=== PATIENT | male | born 1950 | race Caucasian/White ===

== ENCOUNTER 2018-05-10 11:25 | Inpatient (IN) | payer MEDICARE, BC ==
[~2018-05-10] VITALS: Ht 182.9 cm; Wt 72.7 kg
[~2018-05-10 11:25] MED LIST: ANORO IH; DOXYCYCLINE 10100 MG PO; PULMICORT180 MCG/Ac IH; SINGULAIR 110 MG/TAB PO; TYLENOL 500MG500 MG PO; ZANTAC 150MG T150 MG PO; ZYRTEC 10MG10 MG PO
[2018-05-10] MEDS ORDERED: FOSAMAX 35MG35 MG PO (11:48)
[2018-05-10] MEDS ORDERED: OSCAL 500 TAB500 MG PO (11:48)
[2018-05-10] MEDS ORDERED: VITAMIN D31000 IU PO (11:49)
[2018-05-10] MEDS ORDERED: PREDNISONE10 MG PO (11:50)
[2018-05-10] MEDS ORDERED: NEURONTIN300 MG/CAP PO (11:51)
[2018-05-10 12:48] LABS: HEMATOCRIT 44.6 % (42.0-52.0); HEMOGLOBIN 15.1 g/dl (13.5-18.0); MEAN CELL VOLUME 92 fl (80.0-100.0); MEAN CORPUSCULAR HEMOGLOBIN 31 pg (27.0-31.0); MEAN CORPUSCULAR HGB CONC 34 g/dl (33.0-37.0); MEAN PLATELET VOLUME 9.6 fl (7.4-10.4); PLATELET COUNT 432 K/mm3 (130-400); RED BLOOD COUNT 4.86 M/mm3 (4.20-5.60); REDCELL DISTRIBUTION WIDTH-CV 12.4 % (11.5-14.5)
[2018-05-10 13:03] LABS: ALBUMIN 3.8 gm/dL (3.5-5.0); BILIRUBIN,TOTAL 0.8 mg/dL (0.0-1.0); C-REACTIVE PROTEIN 5.2 mg/dL (0.0-0.9); CALCIUM 8.5 mg/dL (8.4-10.2); CREATININE, serum 0.67 mg/dL (0.66-1.25); TOTAL PROTEIN 7.4 gm/dL (6.4-8.2)
[2018-05-10 13:12] LABS: BAND 1 % (0-10); LYMPHOCYTE 12 % (20.0-51.0); METAMYELOCYTE 5 % (0-0); NEUTROPHILS 77 % (42.0-75.2)
[2018-05-10 13:13] LABS: ERYTHROCYTE SEDIMENTATION RATE 48 mm/hr (0-30)
[2018-05-10 13:15] LABS: ANISOCYTOSIS 1+; HYPOCHROMIA 1+; PLATELET ESTIMATE NORMAL (NORMAL)
[2018-05-10] MEDS ORDERED: NORCO 325 MG-51 TAB PO (15:34)
[2018-05-10] MEDS ORDERED: CLEOCIN HCL300 MG PO (15:34)
[2018-05-10 21:48] VITALS: BP 150/78; BP 170/78; PULSE 86; TEMP 97.9
[2018-05-11 00:22] VITALS: BP 113/65; PULSE 64; TEMP 98.5
[2018-05-11 03:54] VITALS: BP 121/50; PULSE 70; TEMP 98.6
[2018-05-11 07:28] VITALS: BP 121/60; PULSE 66; TEMP 97.6
[2018-05-11] MEDS ORDERED: NORCO 325 MG-51 TAB PO (10:24)
[2018-05-11] MEDS ORDERED: CLEOCIN HCL300 MG PO (10:26)
[2018-05-11] MEDS ORDERED: PREDNISONE10 MG PO (10:27)
[2018-05-11] MEDS ORDERED: PERIDEX (CHLOR480 ML MM (10:28)
== END 2018-05-11 11:50 | disposition home or self-care (01) | DRG 159 ==
LOC: COL.ER 11:25 → SURG 17:57
PROVIDERS: Emergency Medicine
PROC: 0C96XZZ Drainage of Lower Gingiva, External Approach (ICD-10-PCS; principal; 2018-05-10)
DX: K04.7 Periapical abscess without sinus (principal); J44.9 Chronic obstructive pulmonary disease, unspecified; M81.0 Age-related osteoporosis without current pathological fracture; J30.9 Allergic rhinitis, unspecified; K21.9 Gastro-esophageal reflux disease without esophagitis
CPT/HCPCS: OP; J1100; J2270; J3010; J7030; J7120; Q9967

== ENCOUNTER 2018-08-16 13:52 | Outpatient (CLI) | payer MEDICARE, BC ==
[~2018-08-16] VITALS: Ht 182.9 cm; Wt 74.5 kg
[~2018-08-16 13:52] MED LIST changes: +CLEOCIN HCL300 MG PO; +FOSAMAX 35MG35 MG PO; +NEURONTIN300 MG/CAP PO; +NORCO 325 MG-51 TAB PO; +OSCAL 500 TAB500 MG PO; +PERIDEX (CHLOR480 ML MM; +PREDNISONE10 MG PO; +VITAMIN D31000 IU PO
[2018-08-16] MEDS ORDERED: MULTI VITAMINS1 TAB PO (14:28)
[2018-08-16 14:29] VITALS: BP 145/59; PULSE 59; TEMP 97.8
== END 2018-08-16 15:20 | disposition home or self-care (01) ==
LOC: EUO 13:52
DX: J45.50 Severe persistent asthma, uncomplicated (principal); D72.1 Eosinophilia; Z79.899 Other long term (current) drug therapy
CPT/HCPCS: C9466

== ENCOUNTER 2018-09-13 10:50 | Outpatient (CLI) | payer MEDICARE, BC ==
[~2018-09-13 10:50] MED LIST changes: +MULTI VITAMINS1 TAB PO
[2018-09-13 11:02] VITALS: BP 163/68; PULSE 62; TEMP 97.5
== END 2018-09-13 12:26 | disposition home or self-care (01) ==
LOC: EUO 10:50 → EDSTATUS 14:00 → EUO 14:00
DX: J45.50 Severe persistent asthma, uncomplicated (principal); D72.1 Eosinophilia; Z79.899 Other long term (current) drug therapy
CPT/HCPCS: C9466

== ENCOUNTER 2018-10-12 13:26 | Outpatient (CLI) | payer MEDICARE, BC ==
[~2018-10-12] VITALS: Ht 182.9 cm; Wt 73.0 kg
[2018-10-12 14:04] VITALS: BP 148/68; PULSE 62; TEMP 97.9
--- NOTE | 2018-10-12 14:25 | NUR ---
Pt charles tijerina. Pt left unit per ambulation.
== END 2018-10-12 15:05 | disposition home or self-care (01) ==
LOC: EUO 13:26 → EDSTATUS 13:30 → EUO 13:30
DX: J45.50 Severe persistent asthma, uncomplicated (principal); D72.1 Eosinophilia; Z79.899 Other long term (current) drug therapy
CPT/HCPCS: J0517

== ENCOUNTER 2018-12-07 10:54 | Outpatient (RCR) | payer MEDICARE, BC ==
[~2018-12-07] VITALS: Ht 182.9 cm; Wt 73.0 kg
[2018-12-07 11:06] VITALS: BP 129/66; PULSE 70; TEMP 97.1
--- NOTE | 2018-12-07 11:22 | NUR ---
Pt charles tijerina. Pt discharged per ambulation.
== END 2018-12-07 11:22 | disposition home or self-care (01) ==
LOC: EUO 10:54
DX: J45.50 Severe persistent asthma, uncomplicated (principal); D72.1 Eosinophilia; Z79.899 Other long term (current) drug therapy
CPT/HCPCS: J0517

== ENCOUNTER 2019-02-03 13:02 | Outpatient (CLI) | payer MEDICARE, BC ==
[~2019-02-03] VITALS: Ht 182.9 cm; Wt 73.3 kg
[2019-02-03 13:22] VITALS: BP 147/74; PULSE 66; TEMP 98.4
== END 2019-02-03 13:32 | disposition home or self-care (01) ==
LOC: EUO 13:02
DX: J45.50 Severe persistent asthma, uncomplicated (principal); D72.1 Eosinophilia; Z79.899 Other long term (current) drug therapy
CPT/HCPCS: J0517

== ENCOUNTER 2019-03-31 13:13 | Outpatient (RCR) | payer MEDICARE, BC ==
[2019-03-31] MEDS ORDERED: FASENRA30 MG/1 ML SQ (13:47)
[2019-03-31 13:49] VITALS: BP 143/65; PULSE 51; TEMP 97.8
== END 2019-03-31 14:00 | disposition home or self-care (01) ==
LOC: EUO 13:13
DX: J45.50 Severe persistent asthma, uncomplicated (principal); D72.1 Eosinophilia; Z79.899 Other long term (current) drug therapy
CPT/HCPCS: J0517

== ENCOUNTER 2019-05-26 12:59 | Outpatient (CLI) | payer MEDICARE, BC ==
[~2019-05-26] VITALS: Ht 182.9 cm; Wt 73.2 kg
[~2019-05-26 12:59] MED LIST changes: +FASENRA30 MG/1 ML SQ
[2019-05-26 13:16] VITALS: BP 150/66; PULSE 56; TEMP 97.3
== END 2019-05-26 13:46 | disposition home or self-care (01) ==
LOC: EUO 12:59
DX: J45.50 Severe persistent asthma, uncomplicated (principal); D72.1 Eosinophilia; Z79.899 Other long term (current) drug therapy
CPT/HCPCS: J0517

== ENCOUNTER 2019-07-21 12:47 | Outpatient (RCR) | payer MEDICARE, BC ==
[~2019-07-21] VITALS: Ht 182.9 cm; Wt 75.9 kg
[2019-07-21 12:58] VITALS: BP 138/70; PULSE 62; TEMP 97.3
== END 2019-07-21 13:09 | disposition home or self-care (01) ==
LOC: EUO 12:47
DX: J45.50 Severe persistent asthma, uncomplicated (principal); D72.1 Eosinophilia; Z79.899 Other long term (current) drug therapy
CPT/HCPCS: J0517

== ENCOUNTER 2019-09-15 12:56 | Outpatient (CLI) | payer MEDICARE, BC ==
[~2019-09-15] VITALS: Ht 182.9 cm; Wt 99.3 kg
[2019-09-15 13:51] VITALS: BP 171/79; PULSE 66; TEMP 97.6
== END 2019-09-15 13:52 | disposition home or self-care (01) ==
LOC: EUO 12:56
DX: J82 Pulmonary eosinophilia, not elsewhere classified (principal); Z79.899 Other long term (current) drug therapy
CPT/HCPCS: J0517

== ENCOUNTER 2019-11-10 12:36 | Outpatient (CLI) | payer MEDICARE, BC ==
[~2019-11-10] VITALS: Ht 182.9 cm; Wt 74.7 kg
[~2019-11-10 12:36] MED LIST changes: +VITAMIN D 400400 IU PO; -VITAMIN D31000 IU PO
[2019-11-10 12:54] VITALS: BP 162/74; PULSE 67; TEMP 97.4
== END 2019-11-10 13:07 | disposition home or self-care (01) ==
LOC: EUO 12:36
DX: J82 Pulmonary eosinophilia, not elsewhere classified (principal); Z79.899 Other long term (current) drug therapy
CPT/HCPCS: J0517

== ENCOUNTER 2020-03-01 13:04 | Outpatient (CLI) | payer MEDICARE, BC ==
[~2020-03-01] VITALS: Ht 182.9 cm; Wt 74.0 kg
[2020-03-01 13:34] VITALS: BP 121/79; PULSE 63; TEMP 97.7
== END 2020-03-01 13:48 | disposition home or self-care (01) ==
LOC: EUO 13:04
DX: J82 Pulmonary eosinophilia, not elsewhere classified (principal); Z79.899 Other long term (current) drug therapy
CPT/HCPCS: J0517

== ENCOUNTER 2020-06-21 13:05 | Outpatient (CLI) | payer MEDICARE, BC ==
[~2020-06-21] VITALS: Ht 182.9 cm; Wt 75.3 kg
[2020-06-21 13:30] VITALS: BP 148/91; PULSE 88; TEMP 98.6
== END 2020-06-21 14:22 | disposition home or self-care (01) ==
LOC: EUO 13:05
DX: J45.909 Unspecified asthma, uncomplicated (principal); D72.1 Eosinophilia; Z79.899 Other long term (current) drug therapy
CPT/HCPCS: J0517

== ENCOUNTER 2020-08-16 13:01 | Outpatient (CLI) | payer MEDICARE, BC ==
[~2020-08-16] VITALS: Ht 182.9 cm; Wt 74.4 kg
[2020-08-16 13:26] VITALS: BP 153/78; PULSE 58; TEMP 98.2
== END 2020-08-16 13:31 | disposition home or self-care (01) ==
LOC: EUO 13:01
DX: J82.83 Eosinophilic asthma (principal); Z79.899 Other long term (current) drug therapy
CPT/HCPCS: J0517

== ENCOUNTER 2020-10-14 12:54 | Outpatient (CLI) | payer MEDICARE, BC ==
[~2020-10-14] VITALS: Ht 182.9 cm; Wt 75.3 kg
[2020-10-14 13:09] VITALS: BP 143/79; PULSE 57; TEMP 98.4
== END 2020-10-14 15:10 | disposition home or self-care (01) ==
LOC: EUO 12:54
DX: J82.83 Eosinophilic asthma (principal); Z79.899 Other long term (current) drug therapy
CPT/HCPCS: J0517

== ENCOUNTER → 2020-12-09 | Outpatient (CLI) | payer MEDICARE, BC ==
[~2020-12-09] VITALS: Ht 182.9 cm; Wt 76.7 kg
[2020-12-09 13:42] VITALS: BP 151/76; PULSE 62; TEMP 97.5
== END ==
LOC: EUO 12:54
DX: J82.83 Eosinophilic asthma (principal); Z79.899 Other long term (current) drug therapy
CPT/HCPCS: J0517

== ENCOUNTER 2021-02-03 12:47 | Outpatient (CLI) | payer MEDICARE, BC ==
[~2021-02-03] VITALS: Ht 182.9 cm; Wt 75.7 kg
[2021-02-03 13:10] VITALS: BP 126/77; PULSE 99; TEMP 99
== END 2021-02-03 13:46 | disposition home or self-care (01) ==
LOC: EUO 12:47
DX: J82.83 Eosinophilic asthma (principal); Z79.899 Other long term (current) drug therapy
CPT/HCPCS: J0517

== ENCOUNTER 2021-03-31 12:52 | Outpatient (CLI) | payer MEDICARE, BC ==
[~2021-03-31] VITALS: Ht 182.9 cm; Wt 75.5 kg
[2021-03-31 13:28] VITALS: BP 155/85; PULSE 96; TEMP 98.3
== END 2021-03-31 13:37 | disposition home or self-care (01) ==
LOC: EUO 12:52
DX: J45.909 Unspecified asthma, uncomplicated (principal); D72.10 Eosinophilia, unspecified
CPT/HCPCS: J0517

== ENCOUNTER 2021-05-27 12:45 | Outpatient (CLI) | payer MEDICARE, BC ==
[~2021-05-27] VITALS: Ht 182.9 cm; Wt 73.9 kg
[2021-05-27 13:07] VITALS: BP 139/53; PULSE 61; TEMP 97.6
== END 2021-05-27 13:08 | disposition home or self-care (01) ==
LOC: EUO 12:45
DX: J82.83 Eosinophilic asthma (principal); Z79.899 Other long term (current) drug therapy
CPT/HCPCS: J0517

== ENCOUNTER 2021-07-22 13:04 | Outpatient (CLI) | payer MEDICARE, BC ==
[~2021-07-22] VITALS: Ht 182.9 cm; Wt 73.8 kg
[2021-07-22 13:21] VITALS: BP 142/74; PULSE 53; TEMP 98.2
== END 2021-07-22 13:29 | disposition home or self-care (01) ==
LOC: EUO 13:04
DX: J82.83 Eosinophilic asthma (principal); Z79.899 Other long term (current) drug therapy
CPT/HCPCS: J0517

== ENCOUNTER 2021-09-16 13:00 | Outpatient (CLI) | payer MEDICARE, BC ==
[~2021-09-16] VITALS: Ht 182.9 cm; Wt 75.4 kg
[2021-09-16 13:11] VITALS: BP 150/74; PULSE 56; TEMP 98.6
== END 2021-09-16 13:29 | disposition home or self-care (01) ==
LOC: EUO 13:00
DX: J82.83 Eosinophilic asthma (principal); Z79.899 Other long term (current) drug therapy
CPT/HCPCS: J0517

== ENCOUNTER 2021-11-11 13:35 | Outpatient (CLI) | payer MEDICARE, BC ==
[~2021-11-11] VITALS: Ht 182.9 cm; Wt 76.3 kg
[2021-11-11 14:30] VITALS: BP 159/68; PULSE 57; TEMP 97.4
== END 2021-11-11 16:00 | disposition home or self-care (01) ==
LOC: EUO 13:35
DX: J82.83 Eosinophilic asthma (principal); Z79.899 Other long term (current) drug therapy
CPT/HCPCS: J0517

== ENCOUNTER 2022-01-06 12:45 | Outpatient (CLI) | payer MEDICARE, BC ==
[~2022-01-06] VITALS: Ht 182.9 cm; Wt 75.7 kg
[2022-01-06 13:10] VITALS: BP 153/77; PULSE 62; TEMP 98
== END 2022-01-06 13:20 ==
LOC: EUO 12:45
DX: J45.909 Unspecified asthma, uncomplicated (principal); D72.10 Eosinophilia, unspecified
CPT/HCPCS: J0517

== ENCOUNTER 2022-03-03 13:04 | Outpatient (CLI) | payer MEDICARE, BC ==
[~2022-03-03] VITALS: Ht 182.9 cm; Wt 77.4 kg
[2022-03-03 13:39] VITALS: BP 147/71; PULSE 59; TEMP 98.2
== END 2022-03-03 13:52 | disposition home or self-care (01) ==
LOC: EUO 13:04
DX: J45.909 Unspecified asthma, uncomplicated (principal); Z79.899 Other long term (current) drug therapy
CPT/HCPCS: J0517

== ENCOUNTER 2022-04-28 12:48 | Outpatient (CLI) | payer MEDICARE, BC ==
[~2022-04-28] VITALS: Ht 182.9 cm; Wt 75.7 kg
[2022-04-28 13:21] VITALS: BP 178/81; PULSE 63; TEMP 97.9
== END 2022-04-28 13:24 | disposition home or self-care (01) ==
LOC: EUO 12:48
DX: J82.83 Eosinophilic asthma (principal)
CPT/HCPCS: J0517

== ENCOUNTER 2022-06-23 12:48 | Outpatient (CLI) | payer MEDICARE, BC ==
[~2022-06-23] VITALS: Ht 182.9 cm; Wt 76.1 kg
[2022-06-23 13:48] VITALS: BP 174/84; PULSE 73; TEMP 97.3
== END 2022-06-23 13:52 ==
LOC: EUO 12:48
DX: J82.83 Eosinophilic asthma (principal)
CPT/HCPCS: J0517